=== PATIENT | female | born 1955 | race Caucasian/White ===

== ENCOUNTER 2019-09-24 10:39 | Day surgery (SDC) | payer MEDICARE, MEDICAID ==
[~2019-09-24] VITALS: Ht 160 cm; Wt 57.2 kg
[2019-09-24] MEDS ORDERED: ESOM20CA PO (11:05)
[2019-09-24] MEDS ORDERED: PREG25CA PO (11:05)
[2019-09-24] MEDS ORDERED: LEVO25TA2 PO (11:05)
[2019-09-24] MEDS ORDERED: BACL20TA PO (11:05)
[2019-09-24 11:06] VITALS: BP 146/70
[2019-09-24] MEDS ORDERED: LACTATED RINGERS 1,000 ML IV SCH (11:09)
[2019-09-24] MEDS ORDERED: MIDAZOLAM 1 MG/ML, 2ML ONE (12:14)
[2019-09-24] MEDS ORDERED: PROPOFOL 50 ML ONE (12:54)
[2019-09-24] MEDS ORDERED: PANTOPRAZOLE 40 MG IV ONE (12:58)
[2019-09-24] MEDS ORDERED: DIAZEPAM 5 MG/ML, 2ML ONE (13:20)
[2019-09-24] MEDS ORDERED: FENTANYL PF 100 MCG/2ML ONE (13:20)
[2019-09-24] MEDS ORDERED: HALOPERIDOL 5 MG/ML IV PRN (13:30)
[2019-09-24] MEDS ORDERED: PROMETHAZINE 12.5 MG SUPP PR PRN (13:30)
[2019-09-24] MEDS ORDERED: ALBUTEROL SULFATE 2.5 MG/3 ML NPPB PRN (13:30)
[2019-09-24] MEDS ORDERED: DIAZEPAM 5 MG/ML, 2ML IVPush PRN (13:30)
[2019-09-24] MEDS ORDERED: PROMETHAZINE 25 MG/ML, 1ML IV PRN (13:30)
[2019-09-24] MEDS ORDERED: HYDROmorphone 2 MG/ML, 1ML IVPush PRN (13:30)
[2019-09-24] MEDS ORDERED: LABETALOL 5MG/ML, 20ML IV PRN (13:30)
[2019-09-24] MEDS ORDERED: FENTANYL PF 100 MCG/2ML IV PRN (13:30)
[2019-09-24] MEDS ORDERED: ONDANSETRON 2MG/ML, 2ML IV PRN (13:30)
[2019-09-24] MEDS ORDERED: EPHEDRINE 50 MG/ML, 1ML IVPush PRN (13:30)
[2019-09-24] MEDS ORDERED: MIDAZOLAM 1 MG/ML, 2ML IV PRN (13:30)
[2019-09-24] MEDS ORDERED: MEPERIDINE/PF 25MG/ML,1ML IVPush PRN (13:30)
[2019-09-24] MEDS ORDERED: hydrALAzine 20 MG/ML, 1ML IV PRN (13:30)
[2019-09-24] MEDS ORDERED: ONDANSETRON ODT 8 MG PO PRN (13:30)
[2019-09-24] MEDS ORDERED: OXYcodone 5 MG/5 ML ORAL.SOL UDC PO PRN (13:30)
[2019-09-24] MEDS ORDERED: OXYcodone 5 MG/5 ML ORAL.SOL UDC ONE (14:21)
== END 2019-09-24 15:20 | disposition home or self-care (01) ==
LOC: OUT 10:39
PROVIDERS: ATTEND Internal Medicine Geriatric Medicine
DX: K25.9 Gastric ulcer, unspecified as acute or chronic, without hemorrhage or perforation (principal); K29.50 Unspecified chronic gastritis without bleeding; K22.2 Esophageal obstruction; K86.1 Other chronic pancreatitis; F41.9 Anxiety disorder, unspecified; E03.9 Hypothyroidism, unspecified; G40.909 Epilepsy, unspecified, not intractable, without status epilepticus; F10.10 Alcohol abuse, uncomplicated; Z79.890 Hormone replacement therapy; Z79.899 Other long term (current) drug therapy; Z98.0 Intestinal bypass and anastomosis status; Z98.84 Bariatric surgery status
CPT/HCPCS: 43237; 43239; 88305; 93005; C9113; J2250; J2704; J3010; J3360; J7120